=== PATIENT | male | born 1990 ===

== ENCOUNTER → 2020-01-24 11:31 | Outpatient (BNVA) | payer OTHER, SELFPAY | PROVIDERS: Family Provider Family Medicine; PCP Family Medicine; Visit Provider Nurse Practitioner Family | DX: Z20.828 Contact with and (suspected) exposure to other viral communicable diseases (principal); J06.9 Acute upper respiratory infection, unspecified | CPT/HCPCS: 87635 ==

== ENCOUNTER → 2020-10-03 10:39 | Outpatient (BNVA) | payer OTHER, SELFPAY | PROVIDERS: Family Provider Family Medicine; PCP Family Medicine; Visit Provider Nurse Practitioner Family | DX: J06.9 Acute upper respiratory infection, unspecified (principal); Z20.828 Contact with and (suspected) exposure to other viral communicable diseases | CPT/HCPCS: 87635 ==

== ENCOUNTER 2024-05-15 15:58 | Emergency (ER) | payer OTHER, SELFPAY ==
[2024-05-15 16:05] VITALS: BP 145/115; PULSE 81; RESP 20; TEMP 36.4; O2SAT 99; BMI 38.3
--- NOTE | 2024-05-15 16:09 | XRR_ITS ---
PROCEDURE INFORMATION: Exam: XR Right Hand Exam date and time: 05/15/2024 4:23 PM Age: 34 years old Clinical indication: Crushing injury; Hand; pain, swelling TECHNIQUE: Imaging protocol: Radiologic exam of the right hand. Views: 3 or more views. COMPARISON: No relevant prior studies available. FINDINGS: Bones/joints: There are nondisplaced oblique fractures through the 1st digit proximal phalanx with adjacent soft tissue edema. Soft tissues: See Bones/joints finding. XR/XR hand RT min 3V* [id number] IMPRESSION: There are nondisplaced oblique fractures through the 1st digit proximal phalanx with adjacent soft tissue edema.
--- NOTE | 2024-05-15 16:56 | ED_ITS ---
HPI - Extremity Problem General: Chief complaint: Extremity Injury, Upper Stated complaint: right hand abrasions Time Seen by Provider: 05/15/24 16:44 History of Present Illness: Patient presents to the ER with a crush injury to the right hand specifically the right thumb. Obvious swelling. No obvious deformity. Patient rates pain 10 out of 10. Patient denies any other hand wrist arm pain. 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 Related Data Home Medications Medication Instructions Recorded Confirmed duloxetine 60 mg capsule,delayed 60 mg PO DAILY 10/03/20 09/18/23 release Previous Rx's Medication Instructions Recorded hydrocodone 5 mg-acetaminophen 325 1 tab PO Q6H PRN pain #14 tabs 05/15/24 mg tablet Allergies Allergy/AdvReac Type Severity Reaction Status Date / Time No Known Allergies Allergy Unverified 10/03/20 09:39 Review of Systems General: Reports: 10 or more systems reviewed and unremarkable except in HPI and below PFSH ED PFSH: Medical History Psychiatric care Social History Smoking and tobacco/nicotine status: current every day tobacco/nicotine user e- cigarettes Current gender identity: Male Physical Exam Const: COMMON NORMALS: no acute distress, average body habitus, patient oriented x3, no limitations, alert and well nourished HENMT: COMMON NORMALS: normocephalic, hearing grossly normal bilaterally, external ears normal, Normal external nose present and moist oral mucous membranes HEAD & SCALP: normocephalic NOSE: Normal external nose present EXTERNAL EAR: Yes external ears normal Neck/C-Spine: COMMON NORMALS: full ROM, no lymphadenopathy, supple, no meningeal signs, no JVD and Thyroid normal THYROID: Thyroid normal Chest: COMMONS NORMALS: normal inspection of the chest and normal palpation of entire chest wall Resp: COMMON NORMALS: normal respiratory effort, No retractions, No use of accessory muscles and clear to auscultation bilaterally AUSCULTATION: clear to auscultation bilaterally Cardio: COMMON NORMALS: no JVD, regular rate, S1 normal heart sound present, S2 normal heart sound present, No gallops present (Cardio), No clicks present (Cardio), No murmurs present (Cardio) and No rub (Cardio) RATE: regular rate HEART SOUNDS: S1 normal heart sound present and S2 normal heart sound present GI: COMMON NORMALS: Normal to inspection, nondistended, normoactive bowel sounds present, Soft to palpation, non-tender, No hepatosplenomegaly present and no masses PALPATION: Yes Soft to palpation and Yes No hepatosplenomegaly present Neuro: COMMON NORMALS: patient oriented x3 SENSORIUM/ORIENTATION: Yes alert MENINGEAL SIGNS: Yes no meningeal signs Course Vital Signs: Vital signs: Vital Signs Temperature 97.6 F 05/15/24 16:05 Pulse Rate 81 05/15/24 16:05 Respiratory Rate 20 H 05/15/24 16:05 Blood Pressure 145/115 05/15/24 16:05 Pulse Oximetry 99 05/15/24 16:05 Oxygen Delivery Me thod Room Air 05/15/24 16:05 MDM - Extremity (Nontraumatic) Medical Decision Making Patient was given [place] 10, x-ray showed nondisplaced oblique fracture through the proximal phalanx, patient was placed in a Ortho-Glass type thumb spica splint. Patient be referred to Ortho. Medical Records I reviewed the patient's medical records. Lab Data I reviewed the patient's lab results. Radiology Impressions Hand X-Ray 05/15/24 16:09 IMPRESSION: There are nondisplaced oblique fractures through the 1st digit proximal phalanx with adjacent soft tissue edema. All radiology interpretation(s) finalized by discharge Discharge Plan Discharge Patient Disposition: Home Clinical Impression: Fracture of thumb, right, closed Condition: Stable Prescriptions: New hydrocodone-acetaminophen 5-325 mg tablet 1 tab PO Q6H PRN (Reason: pain) Qty: 14 0RF No Action duloxetine 60 mg capsule,delayed release(DR/EC) 60 mg PO DAILY Discharge Orders: Discharge ED (Routine); Ordered 05/15/24 Ordered By: Adonay Olivas Referrals: Darren Finley [Primary Care Provider] - 1 week Patient Instructions: Opioid Safety, Pain Management, Thumb Fracture (ED) Activity Restrictions/Additional Instructions: Please take pain medicine as prescribed. Please wear your splint at all times until seen by orthopedics. You will be referred to orthopedics, case management should be calling you sometime Friday morning to arrange this follow-up. Thank you for choosing [facility] [place] for your healthcare needs today. Please realize that you were seen in the emergency department and that we are providing you with an emergency medical screening exam and this may not be a complete and all exclusive of all testing and/or medical workup we may need to determine your element or severity of your illness. It is very important that you follow-up as instructed with your primary care provider or specialist for the additional evaluation and to discuss your medical treatment plan. You may return to the emergency department should you have concerns or if your condition changes or worsens in any way. Coding Level of Care Code ED Materials Manager for En[facility] Cal[facility]
[2024-05-15] MEDS: ibuprofen 800 mg tablet PO (17:02)
[2024-05-15] MEDS: HYDROcodone-acetaminophen 10-325 mg Tablet 1 TAB PO (17:02)
[2024-05-15 19:04] VITALS: BP 133/80; PULSE 89; RESP 18; O2SAT 100
--- NOTE | 2024-05-20 07:57 | DCPLANNER ---
messaged ortho for er f/u
== END 2024-05-15 19:00 | disposition home or self-care (01) ==
PROVIDERS: Emergency Provider Emergency Medicine; Family Provider Family Medicine; PCP Family Medicine
DX: S62.501A Fracture of unspecified phalanx of right thumb, initial encounter for closed fracture (principal); F17.290 Nicotine dependence, other tobacco product, uncomplicated; X58.XXXA Exposure to other specified factors, initial encounter
CPT/HCPCS: 73130; 99283; 99291

== ENCOUNTER → 2025-02-15 11:29 | Outpatient (BNVA) | payer OTHER, SELFPAY | PROVIDERS: Family Provider Family Medicine; PCP Family Medicine; Visit Provider Psychiatry & Neurology Psychiatry | DX: Z79.899 Other long term (current) drug therapy (principal) | CPT/HCPCS: 80053; 80061; 83036; 84443; 85025 ==